=== PATIENT | female | born 1960 | race Caucasian/White ===

== ENCOUNTER 2016-08-07 10:44 | Emergency (ER) | payer MEDICAID, OTHER ==
[~2016-08-07] VITALS: Ht 172.7 cm; Wt 88.3 kg
[~2016-08-07 10:44] MED LIST: ACET325T14 PO; IBUP200T48 PO
[2016-08-07] MEDS ORDERED: SODIUM CHLORIDE 0.9% 1,000ML IV ONE (11:30)
[2016-08-07] MEDS ORDERED: SODIUM CHLORIDE FLUSH 10ML SYR IVF ONE (11:30)
[2016-08-07] MEDS ORDERED: KETOROLAC 30 MG/1 ML IVPush ONE (11:30)
[2016-08-07] MEDS ORDERED: ONDANSETRON 2MG/ML, 2ML IVPush ONE (11:30)
[2016-08-07] MEDS ORDERED: KETOROLAC 30 MG/1 ML ONE (11:36)
[2016-08-07] MEDS ORDERED: ONDANSETRON 2MG/ML, 2ML ONE (11:36)
[2016-08-07] MEDS ORDERED: HYDROmorphone 1 MG/ML, 1ML ONE (12:02)
[2016-08-07 12:07] LABS: HEMOGLOBIN 14.2 g/dL (11.7-16.4)
[2016-08-07 12:13] LABS: BLOOD UREA NITROGEN 11 mg/dL (7-18)
[2016-08-07] MEDS ORDERED: HYDROmorphone 1 MG/ML, 1ML IVPush PRN (12:30)
[2016-08-07 14:36] VITALS: BP 114/76
== END 2016-08-07 14:33 | disposition home or self-care (01) ==
LOC: ED 11:40
DX: M54.5 Low back pain (principal); A09 Infectious gastroenteritis and colitis, unspecified; Z90.710 Acquired absence of both cervix and uterus
CPT/HCPCS: 36415; 74176; 80048; 81001; 82040; 85025; 87040; 96374; 96375; 99285; J1170; J1885; J2405; J7030